=== PATIENT | male | born 1970 | race African-American/Black ===

== ENCOUNTER 2018-06-02 11:15 | Observation (INO) | payer BC, OTHER ==
--- NOTE | 2018-06-02 12:09 | PDOC ---
History of Present Illness - General Chief Complaint: Head/Neck problem Stated Complaint: MOUTH PROBLEM Time Seen by Provider: 06/02/18 12:04 - History of Present Illness Initial Comments: 48yo M with no significant past medical history reports TIA-like symptoms earlier today. 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 The patient also conversed with someone else who noted that something wasnt right. He tried to write something with his right hand and this also felt abnormal. Patient endorsed a heavy and weak sensation in his right hand when compared to the left. Denies vision changes, headache, numbness or tingling, or gait abnormalities. Never had anything like this happen before. No personal or family history of TIA or stroke. His symptoms resolved around 10:50am. Patient currently feels that he is at his baseline. No fevers, chills, chest pain, or shortness of breath. NIH Stroke Scale - Initial Evaluation Level of consciousness: Alert Ask patient the month and their age: Answers both correctly Ask patient to open & close eyes; make fist and let go: Obeys both correctly Best gaze (horizontal eye movement): Normal Visual field testing: No visual field loss Facial paresis (Show teeth/raise eyebrows/close eyes tight): Normal symmetrical movement Motor Function: Left Arm: Normal Motor Function: Right Arm: Normal (extends arm 90 (or 45) degrees for 10 seconds without drift Motor Function: Left Leg: Normal (extends leg 30 degrees for 5 seconds without drift) Motor Function: Right Leg: Normal (extends leg 30 degrees for 5 seconds without drift) Limb Ataxia: No ataxia Sensory(Use pinprick test arms,legs,trunk,face/side to side): Normal Best language (Describe picture, name items, read sentences): No Aphasia Dysarthria (read several words): Normal articulation Extinction and Inattention: No abnormality - Total Score NIH Stroke Scale Score: 0 Past History - Past Medical History Allergies/Adverse Reactions: Allergies Allergy/AdvReac Type Severity Reaction Status Date / Time No Known Allergies Allergy Verified 06/02/18 11:35 Home Medications: Ambulatory Orders NK [No Known Home Medication] 09/20/15 CVA: No COPD: No - Suicide/Smoking/Psychosocial Hx Smoking History: Current every day smoker Have you smoked in the past 12 months: No Number of Cigarettes Smoked Daily: 20 Information on smoking cessation initiated: No Hx Alcohol Use: No Drug/Substance Use Hx: No Substance Use Type: None Review of Systems - Review of Systems Comments:: Constitutional: no fever, no chills HEENT: no throat pain, no dysphagia Cardiovascular: no chest pain, no palpitations Respiratory: no cough, no shortness of breath Gastrointestinal: no abdominal pain, no nausea, no vomiting, Genitourinary: no dysuria, no frequency Musculoskeletal: no myalgia, no arthralgia Skin: no rash, no itching Neurologic: +abnormal speech, +abnormal hand movement *Physical Exam - Vital Signs Last Vital Signs Temp Pulse Resp BP Pulse Ox 98.5 F 82 16 134/90 100 06/02/18 11:15 06/02/18 11:15 06/02/18 11:15 06/02/18 11:15 06/02/18 11:15 - Physical Exam Comments: General: Awake, alert, and fully oriented, in no acute distress Head: No signs of trauma Eyes: EOMI, sclera anicteric ENT: Moist mucus membranes Neck: Normal ROM, supple Lungs: Lungs clear, Normal breath sounds Cardio: Regular rhythm, S1 and S2 present Abdomen: Soft, nontender. No guarding, no rebound, no masses Extremities: Normal range of motion, Distal pulses present SKIN: Warm, Dry, normal turgor Neurologic: Cranial nerves II through XII grossly intact. Normal speech, sensation, strength, coordination, and gait. ED Treatment Course - LABORATORY CBC & Chemistry Diagram: 06/02/18 13:02 06/02/18 12:31 Medical Decision Making - Medical Decision Making 48yo M with no significant past medical history reports TIA-like symptoms earlier today. -Labs: no anemia or leukocytosis, lipid panel unremarkable -EKG: rate 72, QTc 407, NSR -Head CT: no acute pathology -Discussed case with Dr. Alvarenga, neurologist, who recommended observation and aspirin -Will admit. Patient was initially reluctant to stay for observation. Explained the benefits and risks of admission. Patient voiced understanding and agreed to stay. Discussed case with Dr. Arroyo who accepted patient for admission. *DC/Admit/Observation/Transfer Diagnosis at time of Disposition: TIA (transient ischemic attack) - Discharge Dispostion Condition at time of disposition: Guarded Decision to Admit order: Yes - Referrals - Patient Instructions - Post Discharge Activity
--- NOTE | 2018-06-02 13:10 | PDOC ---
Attending Attestation - HPI HPI: 06/02/18 15:16 Patient is a 48 year old male with no significant past medical history who presents to the ED with complaints of TIA symptoms that began this morning at 7: 50 am. Patient reports speaking this morning at 8 am stating it did not feel right as if the words he was trying to say were not write. He reports symptoms continued for 3 hours until 10:50 am, prompting him to come into the ED for further evaluation. He reports attempting to write multiple times during the 3 hour period with similar results, stating it felt different, like something was no right. Patient reports a friend told him, during a conversation the patient was speaking and appeared off. Denies numbness, tingles. Denies chest pain, Sob. Denies trauma to affected area. Denies contact with sick individuals, out of state travelling. Denies fevers, chills. Denies dysuria, hematuria, urinary incontinence. Denies diarrhea , constipation. Denies any other symptoms. Allergies: None Social history: Current smoker (20 cigarettes per day). No alcohol. No illicit drugs. Surgical history: None PMD: None - Physicial Exam PE: 06/02/18 15:16 Vitals: Triage Vital signs reviewed General Appearance: no acute distress, well nourished well developed Head: Atraumatic Cardiac: Regular rate and rhythm, no murmurs, no rubs, no gallops Lungs: Clear to auscultation bilateral, good air movement bilaterally Abdomen: Soft, non distended, normal bowel sounds, non tender to palpation Extremities: Full range of motion to all extremities, no cyanosis, clubbing, or edema Skin: Warm and dry, no rashes or lesions, no rash, no petechiae Neuro: AOX3; Cranial Nerves 2-12 grossly intact, Strength intact to all extremities, Sensation intact to all extremities, gait normal Psych: Normal mood, normal affect <Sj Vickers - Last Filed: 06/02/18 16:19> - Resident Resident Name: Becka Jones - ED Attending Attestation I have performed the following: I have examined & evaluated the patient, The case was reviewed & discussed with the resident, I agree w/resident's findings & plan, Exceptions are as noted - Medical Decision Making 06/02/18 18:26 History examination concerning for TIA symptoms resolved currently at this time NIHSS stroke scale score 0 Case discussed with neurology recommends observation for MRI brain MRA head and neck and carotid Dopplers We'll admit patient for further management. <Jamie Harley - Last Filed: 06/02/18 18:27> Heart Score/ECG Review - ECG Impressions Comment:: 06/02/18 18:27 EKG performed at 1249. Demonstrates normal sinus rhythm [address] elevations or T-wave inversions. Interpreted by me <Jamie Harley - Last Filed: 06/02/18 18:27> NIH Stroke Scale - Initial Evaluation Level of consciousness: Alert Ask patient the month and their age: Answers both correctly Ask patient to open & close eyes; make fist and let go: Obeys both correctly Best gaze (horizontal eye movement): Normal Visual field testing: No visual field loss Facial paresis (Show teeth/raise eyebrows/close eyes tight): Normal symmetrical movement Motor Function: Left Arm: Normal Motor Function: Right Arm: Normal (extends arm 90 (or 45) degrees for 10 seconds without drift Motor Function: Left Leg: Normal (extends leg 30 degrees for 5 seconds without drift) Motor Function: Right Leg: Normal (extends leg 30 degrees for 5 seconds without drift) Limb Ataxia: No ataxia Sensory(Use pinprick test arms,legs,trunk,face/side to side): Normal Best language (Describe picture, name items, read sentences): No Aphasia Dysarthria (read several words): Normal articulation Extinction and Inattention: No abnormality - Total Score NIH Stroke Scale Score: 0 <Jamie Harley - Last Filed: 06/02/18 18:27>
[2018-06-02 13:31] LABS: BASO % 0.4 % (0-2.0); EOS % 1.2 % (0-4.5); HEMOGLOBIN 14.3 GM/dL (11.7-16.9); LYMPH % 19.4 % (8-40); MCH 29.7 pg (25.7-33.7); MCHC 33.3 g/dl (32.0-35.9); MEAN CELL VOLUME 89.2 fl (80-96); MEAN PLT VOLUME 8.1 fl (7.5-11.1); MONO % 8.7 % (3.8-10.2); NEUT % 70.3 % (42.8-82.8); PLATELET COUNT 201 K/MM3 (134-434); RBC 4.83 M/mm3 (4.00-5.60); RDW 14.3 % (11.9-15.9)
[2018-06-02 13:42] LABS: INR 0.93 (0.83-1.09)
[2018-06-02 13:45] LABS: ACTIVATED PTT 25.5 SECONDS (25.2-36.5)
[2018-06-02 13:50] LABS: ALBUMIN 3.5 g/dl (3.4-5.0); ALK PHOS 89 U/L (45-117); ANION GAP 6 MMOL/L (8-16); BILIRUBIN,TOTAL 0.1 mg/dL (0.2-1); BLOOD UREA NITROGEN 18 mg/dL (7-18); CALCIUM 8.4 mg/dL (8.5-10.1); CHLORIDE 105 mmol/L (98-107); CHOLESTEROL 160 mg/dL (50-200); CO2 26 mmol/L (21-32); CREATININE 1.1 mg/dL (0.55-1.3); GLUCOSE,RANDOM 92 mg/dL (74-106); HDL CHOLESTEROL 47 mg/dL (40-60); POTASSIUM 4.2 mmol/L (3.5-5.1); SGOT/AST 24 U/L (15-37); SGPT/ALT 34 U/L (13-61); SODIUM 138 mmol/L (136-145); TOT PROT 6.6 g/dl (6.4-8.2); TRIGLYCERIDES 224 mg/dL (0-150)
--- NOTE | 2018-06-02 14:14 | EKG ---
Test Reason : Blood Pressure : / mmHG Vent. Rate : 072 BPM Atrial Rate : 072 BPM P-R Int : 174 ms QRS Dur : 078 ms QT Int : 372 ms P-R-T Axes : 060 011 025 degrees QTc Int : 407 ms NORMAL SINUS RHYTHM NORMAL ECG NO PREVIOUS ECGS AVAILABLE Confirmed by ABDIAZIZ PHILLIPS MD ([id number]) on 06/02/2018 2:13:54 PM Referred By: Confirmed By:ABDIAZIZ PHILLIPS MD
[2018-06-02] MEDS ORDERED: ASPIRIN 325 MG TABLET PO ONE (15:18)
--- NOTE | 2018-06-02 17:16 | HP ---
CHIEF COMPLAINT: right sided weakness PCP: Dr. Baldwin ([facility]) HISTORY OF PRESENT ILLNESS: Patient is a 48 year old male with a past medical history of HIV+ (diagnosed 1991), CD4 count unknown (on HAART therapy and follows Dr. Baldwin) and current daily smoker (1 pack per day). He comes to the ED for evaluation of slurred speech and right hand weakness. Patient endorsed a weak and heavy sensation of his right hand. He states that he had blurred vision during this episode. Denies headache, numbness or tingling, or gait abnormalities. Never had anything like this happen before. No personal or family history of TIA or stroke. His symptoms resolved around 10:50am. In the Ed patient felt back to himself. He was noted to be sitting in the chair eating a sandwich, speech clear, no facial droop. report his right arm still feels weak. Reports no difficulty with swallowing. No fevers, chills, chest pain, or shortness of breath. ER course was notable for: (1) negative head ct (2) negative carotid doppler (3) Social History: Smokin pack per day Alcohol: denies Drugs: denies Family History: Allergies No Known Allergies Allergy (Verified 06/02/18 11:35) HOME MEDICATIONS: Home Medications Medication Instructions Recorded NK [No Known Home Medication] 09/20/15 PHYSICAL EXAMINATION Vital Signs - 24 hr 06/02/18 11:15 Temperature 98.5 F Pulse Rate 82 Respiratory 16 Rate Blood Pressure 134/90 O2 Sat by Pulse 100 Oximetry (%) GENERAL: Awake, alert, and fully oriented, in no acute distress. HEAD: Normal with no signs of trauma. EYES: Pupils equal, round and reactive to light, extraocular movements intact, sclera anicteric, conjunctiva clear. No lid lag. EARS, NOSE, THROAT: Ears normal, nares patent, oropharynx clear without exudates. Moist mucous membranes. NECK: Normal range of motion, supple without lymphadenopathy, JVD, or masses. LUNGS: Breath sounds equal, clear to auscultation bilaterally. No wheezes, and no crackles. No accessory muscle use. HEART: Regular rate and rhythm ABDOMEN: Soft, nontender, not distended, normoactive bowel sounds, no guarding, no rebound, no masses. No hepatomegaly or splenomegaly. MUSCULOSKELETAL: No CVA tenderness. UPPER EXTREMITIES: 4/5 strength of right hand [employer], 5/5 of left. bilateral lower ext 5/5, able to ambulate in unit, steady gait. denies any lower ext weakness. LOWER EXTREMITIES: 2+ pulses, warm, well-perfused. No calf tenderness. No peripheral edema. NEUROLOGICAL: Cranial nerves II-XII intact. Normal speech. Normal gait. PSYCHIATRIC: Cooperative. Good eye contact. Appropriate mood and affect. SKIN: Warm, dry, normal turgor, no rashes or lesions noted, normal capillary refill. Laboratory Results - last 24 hr 06/02/18 06/02/18 06/02/18 12:31 13:02 13:02 WBC 9.0 RBC 4.83 Hgb 14.3 Hct 43.0 MCV 89.2 MCH 29.7 MCHC 33.3 RDW 14.3 Plt Count 201 MPV 8.1 Absolute Neuts (auto) 6.3 Neutrophils % 70.3 Lymphocytes % 19.4 Monocytes % 8.7 Eosinophils % 1.2 Basophils % 0.4 Nucleated RBC % 0 PT with INR 11.00 INR 0.93 PTT (Actin FS) 25.5 Sodium 138 Potassium 4.2 Chloride 105 Carbon Dioxide 26 Anion Gap 6 L BUN 18 Creatinine 1.1 Creat Clearance w eGFR > 60 Random Glucose 92 Calcium 8.4 L Total Bilirubin 0.1 L AST 24 ALT 34 Alkaline Phosphatase 89 Troponin I < 0.02 Total Protein 6.6 Albumin 3.5 Triglycerides 224 H Cholesterol 160 Total LDL Cholesterol 96 HDL Cholesterol 47 ASSESSMENT/PLAN: Patient is a 48 year old male with a past medical history of HIV+ (diagnosed 1991), CD4 count unknown (on HAART therapy and follows Dr. Baldwin) and current daily smoker (1 pack per day). He comes to the ED for evaluation of slurred speech and right hand weakness. Patient endorsed a weak and heavy sensation of his right hand. He states that he had blurred vision during this episode. Denies headache, numbness or tingling, or gait abnormalities. Never had anything like this happen before. No personal or family history of TIA or stroke. His symptoms resolved around 10:50am. In the Ed patient felt back to himself. He was noted to be sitting in the chair eating a sandwich, speech clear, no facial droop. report his right arm still feels weak. Reports no difficulty with swallowing. No fevers, chills, chest pain, or shortness of breath. Neuro: Rule out tia/stroke head ct negative, carotid duppler negative start asa 81mg, lipitor 20 at hs repeat fasting lipid vp client services on tele brain mri pending neuro consulted by ED swallow eval pt eval HIV: on Haart therapy, verbalizes compliance. follows with pcp for HIV. full code Visit type - Emergency Visit Emergency Visit: Yes ED Registration Date: 06/02/18 Care time: The patient presented to the Emergency Department on the above date and was hospitalized for further evaluation of their emergent condition. - New Patient This patient is new to me today: Yes Date on this admission: 06/03/18 - Critical Care Critical Care patient: No
[2018-06-02] MEDS ORDERED: ASPIRIN 325 MG ENTERIC COATED TABLET (FP) ONE (18:07)
--- NOTE | 2018-06-02 18:29 | CON.NEURO ---
Consult Consult Specialty:: Farzad Referred by:: ER - History of Present Illness History of Present Illness: [id number] right-handed man was essentially normal medical history presented with some difficulty with speech and right hand weakness Stroke protocol was initiated CAT scan of the head revealed no evidence of acute pathology. No report of any seizure-like activity no report of any loss of consciousness chest pain palpitation. Patient was stabilized in the emergency room and to be admitted for observation for telemetric case with the patient in the emergency room. Since observation no return of symptoms - History Source History Provided By: Patient Limitations to Obtaining History: No Limitations - Alcohol/Substance Use Hx Alcohol Use: No - Smoking History Smoking history: Current every day smoker Have you smoked in the past 12 months: No Aproximately how many cigarettes per day: 20 Home Medications - Allergies Allergies/Adverse Reactions: Allergies Allergy/AdvReac Type Severity Reaction Status Date / Time No Known Allergies Allergy Verified 06/02/18 11:35 - Home Medications Home Medications: Ambulatory Orders NK [No Known Home Medication] 09/20/15 Physical Exam-Neuro Vital Signs: Vital Signs Temperature 98.5 F 06/02/18 11:15 Pulse Rate 82 06/02/18 11:15 Respiratory Rate 16 06/02/18 11:15 Blood Pressure 134/90 06/02/18 11:15 O2 Sat by Pulse Oximetry (%) 100 06/02/18 11:15 Labs: CBC, BMP 06/02/18 13:02 06/02/18 12:31 INR, PTT INR 0.93 (0.83-1.09) 06/02/18 13:02 - Neuro Exam Level Of Consciousness: Yes: Oriented to Person, Oriented to Place, Oriented to Time Eyes: Yes: PERRLA Speech: WNL Dominant Hand: Right Cranial Nerves II-XII Intact: Yes Gag: Present DTR's: 1+ Left Bicep, 1+ Right Bicep, 1+ Left Brachioradialis, 1+ Right Brachioradialis Response to light touch: Normal Response to pain prick: Normal Response to temperature: Normal Response to vibration: Normal Motor Strength: 3/5: Left Arm, Right Arm, Left Leg, Right Leg Gait: Deferred NIH Stroke Scale - Last Known Well Date/Time & Onset Date Last Known Well: 06/02/18 Time Last Known Well: 09:30 - Initial Evaluation Level of consciousness: Alert Ask patient the month and their age: Answers both correctly Ask patient to open & close eyes; make fist and let go: Obeys both correctly Best gaze (horizontal eye movement): Normal Visual field testing: No visual field loss Facial paresis (Show teeth/raise eyebrows/close eyes tight): Normal symmetrical movement Motor Function: Left Arm: Normal Motor Function: Right Arm: Drift Motor Function: Left Leg: Normal (extends leg 30 degrees for 5 seconds without drift) Motor Function: Right Leg: Normal (extends leg 30 degrees for 5 seconds without drift) Limb Ataxia: No ataxia Sensory(Use pinprick test arms,legs,trunk,face/side to side): Mild to moderate decrease in sensation Best language (Describe picture, name items, read sentences): No Aphasia Dysarthria (read several words): Normal articulation Extinction and Inattention: No abnormality - Total Score NIH Stroke Scale Score: 2 Imaging - Results Cat Scan: Image Reviewed Problem List - Problems (1) CVA (cerebral vascular accident) Assessment/Plan: Left M2 CVA risk factor Smoker No Tpa outside the window small NIHSS risk outweigh the benefits Plan 1. Holetr monitor 2. PT 33. MRI brain 4. C Duplex 5. Echo 6. ASA 7. Statis 8. Stroke education Thank ou for the kind referral Code(s): I63.9 - CEREBRAL INFARCTION, UNSPECIFIED
[2018-06-02] MEDS ORDERED: ATORVASTATIN CA 20 MG TABLET (FP) PO SCH (22:00)
[2018-06-03] MEDS ORDERED: ATORVASTATIN CA 40 MG TABLET (FP) ONE (00:41)
[2018-06-03 07:03] LABS: BASO % 0.3 % (0-2.0); EOS % 1.3 % (0-4.5); HEMATOCRIT 43.7 % (35.4-49); HEMOGLOBIN 13.9 GM/dL (11.7-16.9); LYMPH % 26.9 % (8-40); MCH 28.4 pg (25.7-33.7); MCHC 31.7 g/dl (32.0-35.9); MEAN CELL VOLUME 89.7 fl (80-96); MEAN PLT VOLUME 7.8 fl (7.5-11.1); MONO % 10.1 % (3.8-10.2); NEUT % 61.4 % (42.8-82.8); PLATELET COUNT 179 K/MM3 (134-434); RBC 4.88 M/mm3 (4.00-5.60); RDW 14.6 % (11.9-15.9); WHITE BLOOD COUNT 6.3 K/mm3 (4.0-10.0)
[2018-06-03 07:25] LABS: ALBUMIN 3.4 g/dl (3.4-5.0); ALK PHOS 78 U/L (45-117); ANION GAP 5 MMOL/L (8-16); BILIRUBIN,TOTAL 0.4 mg/dL (0.2-1); BLOOD UREA NITROGEN 14 mg/dL (7-18); CALCIUM 8.8 mg/dL (8.5-10.1); CHLORIDE 108 mmol/L (98-107); CHOLESTEROL 157 mg/dL (50-200); CO2 27 mmol/L (21-32); CREATININE 1.1 mg/dL (0.55-1.3); GLUCOSE,RANDOM 97 mg/dL (74-106); HDL CHOLESTEROL 51 mg/dL (40-60); MAGNESIUM 2.2 mg/dL (1.8-2.4); POTASSIUM 4.4 mmol/L (3.5-5.1); SGOT/AST 19 U/L (15-37); SGPT/ALT 28 U/L (13-61); SODIUM 140 mmol/L (136-145); TOT PROT 6.3 g/dl (6.4-8.2); TRIGLYCERIDES 81 mg/dL (0-150)
--- NOTE | 2018-06-03 09:38 | ECHO ---
Name: GANESH NARANJO Exam:Adult Echocardiogram Study Date: 06/03/2018 08:28 AM Age: 48 yrs Reason For Study: CVA Height: 69 in Weight: 175 lb BSA: 2.0 m2 Left Ventricle The left ventricular size, thickness and function are normal. Ejection Fraction = 55-60%. Left Ventri cular Filling pattern is normal for age. The left ventricular wall motion is normal. Right Ventricle The right ventricle is normal in size and function. Atria Normal left and right atrial size and function. Right atrial size is normal. The interatrial septum i s intact with no evidence for an atrial septal defect. Mitral Valve The mitral valve is normal in structure and function. There is no mitral valve stenosis. There is tra ce mitral regurgitation. Tricuspid Valve The tricuspid valve is normal in structure and function. There is mild tricuspid regurgitation. Right ventricular systolic pressure is normal. Aortic Valve The aortic valve is trileaflet. No hemodynamically significant valvular aortic stenosis. No aortic regurgitation is present. Pulmonic Valve The pulmonic valve is not well seen, but is grossly normal. There is no pulmonic valvular stenosis. T race pulmonic valvular regurgitation. Great Vessels The aortic root is normal size. Pericardium/Pleura There is no pericardial effusion. Interpretation Summary The left ventricular size, thickness and function are normal Ejection Fraction = 55-60%. The right ventricle is normal in size and function. There is mild tricuspid regurgitation. There is no pericardial effusion. MD Guzman *Dante 06/03/2018 09:37 AM
[2018-06-03] MEDS ORDERED: ASPIRIN 325 MG TABLET PO SCH (10:00)
[2018-06-03] MEDS ORDERED: ASPIRIN 325 MG TABLET ONE (10:58)
--- NOTE | 2018-06-03 15:35 | PN ---
Progress Note, Physician History of Present Illness: events noted and chart reviewed Seen on tele Alert Awake Oriented Hand is blossom same MRI noted ?? embolic CVA Patient need [facility] No cardiology on the case - Current Medication List Current Medications: Active Medications Aspirin (Asa -) 81 mg PO DAILY [facility] Last Admin: 06/03/18 10:58 Dose: 81 mg Atorvastatin Calcium (Lipitor -) 20 mg PO HS [facility] Last Admin: 06/03/18 00:49 Dose: 20 mg - Objective Vital Signs: Vital Signs Temperature 97.7 F 06/03/18 09:20 Pulse Rate 63 06/03/18 14:04 Respiratory Rate 16 06/03/18 14:04 Blood Pressure 115/66 06/03/18 14:04 O2 Sat by Pulse Oximetry (%) 98 06/03/18 09:20 Constitutional: Yes: Well Nourished Eyes: Yes: WNL Neurological: Yes: Alert, Oriented, Babinski negative ...Motor Strength: LUE (5), LLE (5), RUE (4/5) Labs: CBC, BMP 06/03/18 06:30 06/03/18 06:30 INR, PTT INR 0.93 (0.83-1.09) 06/02/18 13:02 Problem List - Problems (1) CVA (cerebral vascular accident) Assessment/Plan: Patient with embolic CVA 1. Neuro checks 2. Need cardiology eval 3. Need [facility] 4. ASA 5. Ststain 6. PT rehab Patient wants to go home Can arrange [facility] as OP Code(s): I63.9 - CEREBRAL INFARCTION, UNSPECIFIED
--- NOTE | 2018-06-03 16:18 | CONSULT ---
Admitting History and Physical - Smoking History Smoking history: Current every day smoker Have you smoked in the past 12 months: No Aproximately how many cigarettes per day: 20 - Alcohol/Substance Use Hx Alcohol Use: No History - Admission Reason For Visit: TRANSIDENT ISCHEMIC ATTACK Speech Evaluation - Communication Communication: Yes: Within Normal Limits, Simple Responses Oral Expression Ability: Yes: No Impairment - Speech Production Apraxia: No Able to Make Needs Known: Yes: WNL Intelligibility: Yes: WNL - Speech Characteristics Voice Loudness: Normal Voice Pitch: Yes: Normal Voice Phonatory-based Quality: Yes: Normal Speech Pattern: Normal Nasal Resonance: Normal Articulation: Yes: Precise Rate of Speech: Intact - Language/Auditory Comprehension Follows: Yes: Complex Commands (WFL) Observation: Able to respond to yes/no queries: Yes, Yes/No Confusion: No, Comprehends Conversational Speech: Yes, Benefits from Slow Speech: No, Benefits from Repetiton: No, Benefits from Increased Volume of Speech: No - Language/Verbal Expression Able to Respond to Simple Queries: Yes: WNL Able to Communicate Wants and Needs: Yes: WNL Functional Communication Status: Yes: WNL Aware of Errors: Yes Attempts to Correct Errors: Yes Use of Gestures: No Written Expression: WFL Oral Expression: WFL Reading Comprehension: WFL Calculations: WFL Attention: Yes: Intact - Memory/Perception local company intermodal truck driver Memory: Yes: WNL Short Term Memory: Yes: WNL - Swallow Evaluation/Bedside Assessment Current Nutritional Intake: Regular, Thin Liquids Oral Secretions: Yes: WFL Tracheostomy Present: No Patient on Ventilator: No Dentition: Yes: Adequate Facial Symmetry at Rest: Symmetrical Facial Symmetry on Retraction: Symmetrical Facial Movement: Controlled Sensation: Normal Facial Comment: WFL for speech and swallowing purposes Jaw Position: Closed at Rest Against Resistance Opening: Normal Against Resistance Closing: Normal Pucker Lips: Normal Smile: Normal Lips, Comment: WFL for speech and swallowing purposes Lingual Movement: Normal Lingual Speed of Movement: Normal Lingual Movement Strgth Against Opposition: Normal Lingual Movement Characteristics: Normal Lingual Comment: WFL for speech and swallowing purposes Soft Palate Description: Normal Color, Normal Arch Hard Palate Description: Normal Color, Normal Arch Gag Reflex: Strong Bite Reflex: Present Velopharyngeal Movement: Normal Laryngeal Elevation: WFL Laryngeal Movement: Able to Palpate Needs Assistance: No Rate of Intake: WFL Bolus Size: WFL Labial Seal: WFL Chewing: WFL Oral Prep Time: WFL A-P Transit: WFL Pocketing: None Timing of Swallow: WFL Coughing/Throat Clear: No Change in Voice: No Other Findings/Remarks: 48 yo male seen at bedside for speech and swallow eval. Pt presents as verbal, A&Ox3, cooperative. Follow directions, Adequate vocal quality and airway protection. Pt admitted to [facility] for right sided weakness, and self reported slurred speech (now resolved). Pt given po trials of puree and regular solids without assistance revealed good acceptance, adequate mastication, bolus formation and transport. Pharyngeal swallow appears timely with no evidence of aspiration at this time. Thin liquids trials via cup and straw were unremarkable for aspiration at bedside. Recommendations - Speech Evaluation, Impression/Plan Impression: 48 presents with no s/s of dysphagia and / or aspiration at bedside at this time. Speech and language is WFL. Alf Goals: Tolerate the least restrictive diet without s/s of aspiration. Short Term Goals: Tolerate purees, regular solids with thin liquids without s/s of aspiration. - Dysphagia Impressions/Plan Swallowing Skills: [facility] Dysphagia Impressions: No Impairment Dysphagia Treatment Plan: Safe Rate Dysphagia Evaluation Summary: Pt is able to tolerate purees, regular solids with thin liquids without s/s of dysphagia and / or aspiration. Pt can consume meals without supervision. Meds can ib given whole with liquids. 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 No further speech intervention is needed unless there is a change in medical status. - Recommendations Diet Consistency: Regular Medication Administration: Whole with water Liquids: Thin Liquids
[2018-06-03 16:24] VITALS: BMI 21.5
--- NOTE | 2018-06-03 16:25 | DS ---
Physical Exam: SUBJECTIVE: Patient seen and examined at the bedside. feels well, denies any pain, no visual defect. OBJECTIVE: mri with acute subacute infarct discussed with neuro, patient will need BRANT. pt unwilling to stay in hospital. wants to follow up outpatient. Consulted Dr. Ascencio and made aware of new consult. Patient to set up appointment outpatient with Dr. Ascencio next week for BRANT. continue asa, lipitor Vital Signs Period Temp Pulse Resp BP Sys/Major Pulse Ox Last 24 Hr 97.7 F-97.8 F 61-71 16-20 106-138/64-78 98-100 PHYSICAL EXAM GENERAL: Awake, alert, and fully oriented, in no acute distress. HEAD: Normal with no signs of trauma. EYES: Pupils equal, round and reactive to light, extraocular movements intact, sclera anicteric, conjunctiva clear. No lid lag. EARS, NOSE, THROAT: Ears normal, nares patent, oropharynx clear without exudates. Moist mucous membranes. NECK: Normal range of motion, supple without lymphadenopathy, JVD, or masses. LUNGS: Breath sounds equal, clear to auscultation bilaterally. No wheezes, and no crackles. No accessory muscle use. HEART: Regular rate and rhythm ABDOMEN: Soft, nontender, not distended, normoactive bowel sounds, no guarding, no rebound, no masses. No hepatomegaly or splenomegaly. MUSCULOSKELETAL: No CVA tenderness. 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 bilateral lower ext 5/5, able to ambulate in unit, steady gait. denies any lower ext weakness. LOWER EXTREMITIES: 2+ pulses, warm, well-perfused. No calf tenderness. No peripheral edema. NEUROLOGICAL: Cranial nerves II-XII intact. Normal speech. Normal gait. PSYCHIATRIC: Cooperative. Good eye contact. Appropriate mood and affect. LABS Laboratory Results - last 24 hr 06/02/18 06/03/18 06/03/18 12:31 06:30 06:30 WBC RBC Hgb Hct MCV MCH MCHC RDW Plt Count MPV Absolute Neuts (auto) Neutrophils % Lymphocytes % Monocytes % Eosinophils % Basophils % Nucleated RBC % ESR 6 Sodium 138 Potassium 4.2 Chloride 105 Carbon Dioxide 26 Anion Gap 6 L BUN 18 Creatinine 1.1 Creat Clearance w eGFR > 60 Random Glucose 92 Hemoglobin A1c % Calcium 8.4 L Magnesium Total Bilirubin 0.1 L AST 24 ALT 34 Alkaline Phosphatase 89 Creatine Kinase Creatine Kinase Index CK-MB (CK-2) Troponin I < 0.02 C-Reactive Protein < 0.3 Total Protein 6.6 Albumin 3.5 Triglycerides 224 H Cholesterol 160 Total LDL Cholesterol 96 HDL Cholesterol 47 Vitamin B12 489 RPR Titer Nonreactive 06/03/18 06/03/18 06/03/18 06:30 06:30 06:30 WBC 6.3 RBC 4.88 Hgb 13.9 Hct 43.7 MCV 89.7 MCH 28.4 MCHC 31.7 L RDW 14.6 Plt Count 179 MPV 7.8 Absolute Neuts (auto) 3.9 Neutrophils % 61.4 Lymphocytes % 26.9 D Monocytes % 10.1 Eosinophils % 1.3 Basophils % 0.3 Nucleated RBC % 0 ESR Sodium 140 Potassium 4.4 Chloride 108 H Carbon Dioxide 27 Anion Gap 5 L BUN 14 Creatinine 1.1 Creat Clearance w eGFR > 60 Random Glucose 97 Hemoglobin A1c % 6.0 Calcium 8.8 Magnesium 2.2 Total Bilirubin 0.4 AST 19 ALT 28 Alkaline Phosphatase 78 Creatine Kinase 183 Creatine Kinase Index 0.7 CK-MB (CK-2) 1.46 Troponin I < 0.02 C-Reactive Protein Total Protein 6.3 L Albumin 3.4 Triglycerides 81 Cholesterol 157 Total LDL Cholesterol 96 HDL Cholesterol 51 Vitamin B12 RPR Titer HOSPITAL COURSE: Patient is a 48 year old male with a past medical history of HIV+ (diagnosed 1991), CD4 count unknown (on HAART therapy and follows Dr. Baldwin) and current daily smoker (1 pack per day). He comes to the ED for evaluation of slurred speech and right hand weakness. Patient endorsed a weak and heavy sensation of his right hand. He states that he had blurred vision during this episode. On arrival to the ED until time of discharge, patient's symptoms have resolved. Denies headache, numbness or tingling, or gait abnormalities. Never had anything like this happen before. No personal or family history of TIA or stroke. His symptoms now resolved. Neuro: MRI with findings of acute/subacute infarct. pt denies any difficulty swallowing, no visual defect. mild right arm weakness. head ct negative, carotid duppler negative, MRI with acute/subacute infarct. start asa 81mg, lipitor 20 at hs no events on tele discussed with neuro, patient will need BRANT. pt unwilling to stay in hospital. wants to follow up outpatient. Consulted Dr. Ascencio and made aware of new consult. Patient to set up appointment outpatient with Dr. Ascencio next week for BRANT. passed swallow eval. Patient seen ambulating in hallways, steady gait. ID: HIV: on Haart therapy, verbalizes compliance. follows with pcp for HIV. psyche: smoker: cessation discussed. willing to quit. nicotine patches recommended. Patient is not willing to stay for BRANT. Wants to follow outpatient. Patient given referral to follow up with Dr. Ascencio for BRANT. Patient in agreement. Patient stable for discharge with close follow up. Date of Admission:06/02/18 Date of Discharge: 06/03/18 Minutes to complete discharge: 60 Discharge Summary Reason For Visit: TRANSIDENT ISCHEMIC ATTACK Current Active Problems CVA (cerebral vascular accident) (Acute) CVA (cerebral vascular accident) (Acute) TIA (transient ischemic attack) (Acute) Condition: Guarded - Instructions Diet, Activity, Other Instructions: Mr. Jacinto: You were placed under observation. A brain MRI imaging showed an acute infarct. Here is what we recommend: Acute Stroke: Please continue taking aspirin 81mg daily. Lipitor 20mg at night daily. You will need to be closely followed by a neurologist. The neurologist that attended to you here is Dr. Panda. We will send a referral for you. You will need a BRANT. A BRANT is an test that uses ultraound to create picture of your heart movement. It is a type of echo that uses a long tube to guide the transducer down the esophagus. please stop smoking smoking creates a high risk for you to have another stroke. We recommend Nicotine patches that can be purchased over the counter. We have referred you to see Dr. Ascencio who performs BRANT. He would like for you to call him for an appointment next week. (Dr Ascencio [phone]). I am available for questions. Thank you for allowing us to care for you. Kylie Bernardo Adelanto OCCUPATIONAL HEALTH MANAGER [phone] [facility] @ [facility] Referrals: Toy Ascencio MD [Staff Physician] - 1 Week Disposition: HOME - Home Medications Comprehensive Discharge Medication List: Ambulatory Orders Aspirin [ASA -] 81 mg PO DAILY #60 tablet 06/03/18 Atorvastatin Ca [Lipitor] 20 mg PO HS #30 tablet 06/03/18 This patient is new to me today: No Emergency Visit: Yes ED Registration Date: 06/02/18 Care time: The patient presented to the Emergency Department on the above date and was hospitalized for further evaluation of their emergent condition. Critical Care patient: No - Discharge Referral Referred to [facility] No
[2018-06-03] MEDS ORDERED: ATORVASTATIN CA 20 MG TABLET (FP) PO ONE (16:30)
[2018-06-03 22:55] VITALS: TEMP 98.8
[2018-06-03 22:57] VITALS: BP 121/74; PULSE 82
== END 2018-06-03 18:33 | disposition home or self-care (01) ==
LOC: JER 11:15 → JERBED 15:24 → J4W 06-03 14:15
PROVIDERS: ADMIT Internal Medicine; ATTEND Nurse Practitioner Family
DX: I63.9 Cerebral infarction, unspecified (principal); G45.9 Transient cerebral ischemic attack, unspecified; Z21 Asymptomatic human immunodeficiency virus [HIV] infection status; F17.210 Nicotine dependence, cigarettes, uncomplicated
CPT/HCPCS: 36415; 70450-TC; 70551-TC; 80053; 80061; 82085; 82550; 82553; 82607; 83036; 83721; 83735; 84484; 85025; 85610; 85651; 85730; 86140; 86593; 93005; 93010; 93306-TC; 93880-TC; 99285-25; G0378

== ENCOUNTER 2018-06-16 08:24 | Day surgery (SDC) | payer BC ==
[2018-06-16 09:00] VITALS: BMI 25.7
[2018-06-16 10:14] VITALS: TEMP 97.9
[2018-06-16 11:21] VITALS: BP 118/78; PULSE 70
--- NOTE | 2018-06-16 12:54 | ECHO ---
Name: JOSE A, GANESH Exam:Transesophageal Echocardiogram Study Date: 06/16/2018 09:34 AM Age: 48 yrs Height: 69 in Weight: 175 lb BSA: 2.0 m2 Procedure: A 2D transesophageal echocardiogram with Doppler and color flow Doppler was performed. Informed conse nt for Transesophageal Echocardiogram, and use of a contrast agent as needed, was obtained prior to the proc edure. The patient was brought to the endoscopy suite in a fasting state. An intravenous line was placed. A topical anesthetic agent was used for oropharangeal anesthesia. A bite block was inserted. IV concious sedati on was administered using propafol. A multifrequency, multiplane transesopheageal echocardiographic endoscop e was inserted and manipulated in the standard fashion to achieve multiplane views. The usual views were ob tained; basal, mid-esophageal, transgastric and aortic views. The patient's vital signs, including blood pres sure, heart rate, pulse oximetry and cardiac rhythm were monitored throughout the procedure and remained st able. The patient tolerated the procedure well without evidence of orophangeal or esophageal trauma. There were no complications. The patient was in normal sinus rhythm during the exam. Left Ventricle The left ventricle is normal in size. Left ventricular systolic function is normal. No regional wall motion abnormalities noted. Atria The left atrial size is normal. No thrombus is detected in the left atrial appendage. No left atrial mass or thrombus visualized. The interatrial septum is intact with no evidence for an atrial septal defect. I njection of contrast documented no interatrial shunt. Mitral Valve The mitral valve leaflets appear normal. There is no evidence of stenosis, fluttering, or prolapse. T here is trace to mild mitral regurgitation. Tricuspid Valve The tricuspid valve is not well visualized, but is grossly normal. No tricuspid regurgitation. Aortic Valve The aortic valve is trileaflet. The aortic valve is normal in structure and function. The aortic valv e opens well. No aortic regurgitation is present. Pulmonic Valve The pulmonic valve is not well seen, but is grossly normal. There is no pulmonic valvular regurgitati on. Great Vessels No evidence of atherosclerotic plaques in ascending, descending thoracic aorta or aortic arch. Pericardium/Pluera There is no pericardial effusion. Interpretation Summary The left ventricle is normal in size. Left ventricular systolic function is normal. No regional wall motion abnormalities noted. The left atrial size is normal. No thrombus is detected in the left atrial appendage. No left atrial mass or thrombus visualized. The interatrial septum is intact with no evidence for an atrial septal defect. Injection of contrast documented no interatrial shunt. There is trace to mild mitral regurgitation. No evidence of atherosclerotic plaques in ascending, descending thoracic aorta or aortic arch There is no pericardial effusion. Rodolfo Campa MD 06/16/2018 12:53 PM
== END 2018-06-16 12:18 | disposition home or self-care (01) ==
LOC: JASU-ENDO 08:24
PROVIDERS: ATTEND Internal Medicine Cardiovascular Disease
PROC: B246ZZ4 Ultrasonography of Right and Left Heart, Transesophageal (ICD-10-PCS; principal; 2018-06-16 09:00)
DX: I63.9 Cerebral infarction, unspecified (principal); Z21 Asymptomatic human immunodeficiency virus [HIV] infection status; Z87.891 Personal history of nicotine dependence
CPT/HCPCS: 93312; 93325